=== PATIENT | female | born 2000 | race African-American/Black ===

== ENCOUNTER 2019-06-17 16:23 | Observation (INO) ==
[2019-06-17] MEDS ORDERED: methylPREDNISolone SOD SUC 125 MG/2 ML VIAL IV ONE (16:59)
[2019-06-17] MEDS ORDERED: ONDANSETRON ODT 4 MG TABLET PO PRN (17:00)
[2019-06-17] MEDS ORDERED: ACETAMINOPHEN 500 MG TABLET PO PRN (17:05)
[2019-06-17] MEDS: LACTATED RINGERS 1,000 ML IV SCH ×2 (17:21→19:17)
[2019-06-17] MEDS ORDERED: MULTIVITAMIN INJ 10 ML in SODIUM CHLORIDE 0.9% 1,000 ML IV SCH (17:30)
[2019-06-17] MEDS: ONDANSETRON 4 MG/2 ML VIAL IV PRN (17:43)
[2019-06-17 18:36] LABS: Basophils % 0.2 % (0.0-0.8); Hematocrit 36.4 VOL% (35.7-47.0); Hemoglobin 12.2 GM/DL (12.0-16.0); Immature Granulocytes % 0.5 %; Immature Granulocytes Absolute 0.02 #; Lymphocytes # 1.8 10*3/uL (1.4-4.0); Mean Corpuscular HGB Conc 33.5 GM/DL (32-36); Mean Corpuscular Volume 86.9 FL (87-102); Monocytes % 9.3 % (1.7-12.7); Platelet Count 183 T/CUMM (130-400); Red Blood Count 4.19 MC/CUMM (3.8-5.5); Red Cell Distribution Width 11.3 % (9.3-17.3); White Blood Count 4.4 T/CUMM (4-12)
[2019-06-17 19:07] LABS: Albumin 2.4 G/DL (3.4-5.0); Bilirubin,Total 0.6 MG/DL (0.2-1.0); Calcium 8.8 MG/DL (8.5-10.1); Free T4 (Free Thyroxine) 1.13 NG/DL (0.76-1.46); Osmolality,Calculated 273.7 MOS/KG (273-304); Thyroid Stimulating Hormone 1.41 uIU/ml (0.358-3.74); Total Protein 7.3 G/DL (6.4-8.3)
[2019-06-18] MEDS: ONDANSETRON 4 MG/2 ML VIAL IV PRN (08:11)
[2019-06-18 11:22] VITALS: BP 102/57
[2019-06-18] MEDS: LACTATED RINGERS 1,000 ML IV SCH (13:49)
== END 2019-06-18 15:10 | disposition home or self-care (01) ==
LOC: N.OB
PROVIDERS: ADMIT Obstetrics & Gynecology; ATTEND Obstetrics & Gynecology